=== PATIENT | female | born 1950 | race Caucasian/White ===

== ENCOUNTER → 2016-11-02 | Outpatient (CLI) | payer OTHER, BC | LOC: BHFA 12:45 | PROVIDERS: ATTEND Internal Medicine Cardiovascular Disease | DX: I49.3 Ventricular premature depolarization (principal); I27.2 Other secondary pulmonary hypertension ==

== ENCOUNTER → 2016-11-12 | Outpatient (CLI) | payer OTHER, BC | LOC: BHCLAF 14:00 | PROVIDERS: ATTEND Internal Medicine | DX: R01.1 Cardiac murmur, unspecified (principal); I27.2 Other secondary pulmonary hypertension | CPT/HCPCS: 93306-PO; 93880-PO ==

== ENCOUNTER → 2018-06-18 | Outpatient (CLI) | payer OTHER, BC | LOC: BHLMT 14:00 | PROVIDERS: ATTEND Internal Medicine Interventional Cardiology | DX: R01.1 Cardiac murmur, unspecified (principal); I27.20 Pulmonary hypertension, unspecified | CPT/HCPCS: 93306-PO ==